=== PATIENT | male | born 1995 | race Caucasian/White ===

== ENCOUNTER 2020-11-20 10:51 | Emergency (ER) | payer OTHER ==
[~2020-11-20 10:51] MED LIST: BENTYL 10MG CAP10 MG PO; MIRALAX17 GM PO; ZOFRAN ODT 4 MG4 MG SL
[2020-11-20] MEDS ORDERED: IBUPROFEN800 MG PO (12:42)
== END 2020-11-20 12:56 | disposition home or self-care (01) ==
LOC: ER1 10:51
DX: S00.93XA Contusion of unspecified part of head, initial encounter (principal); F17.200 Nicotine dependence, unspecified, uncomplicated; W22.8XXA Striking against or struck by other objects, initial encounter
CPT/HCPCS: 70450; 72125; 93005; 96374; 96375; 99284; J2270; J2405